=== PATIENT | male | born 1980 | race Caucasian/White ===

== ENCOUNTER 2018-11-25 08:32 | Day surgery (SDC) | payer MEDICARE, MEDICAID ==
[2018-11-21 11:59] LABS: CLARITY,URINE CLEAR (Clear); COLOR,URINE YELLOW (Yellow); GLUCOSE, URINE NEGATIVE (Neg); KETONES,URINE NEGATIVE (Neg); LEUKOCYTE ESTERASE ,URINE NEGATIVE (Neg); NITRITES, URINE NEGATIVE (Neg); OCCULT BLOOD,URINE TRACE-LYSED (Neg); PH,URINE 6.5 (4.8-8.0); PROTEIN,URINE NEGATIVE (Neg); UROBILINOGEN,URINE 0.2 E.U/dL (0.2-1.0)
[2018-11-21 12:00] LABS: UA COLLECTION TYPE VOIDED
[2018-11-21 12:00] LABS: BASOPHILS % (AUTO) 0.5 % (0-1); EOSINOPHILS # (AUTO) 0.1 X10'3 (0-0.9); LYMPHOCYTES # (AUTO) 1.7 X10'3 (1.1-4.8); LYMPHOCYTES % (AUTO) 18.4 % (21-51); MEAN CORPUSCULAR HEMOGLOBIN 31.1 PG (27.0-31.0); MEAN CORPUSCULAR HGB CONC 33.8 g/dL (33.0-36.5); MEAN CORPUSCULAR VOLUME 92.1 FL (78-98); MEAN PLATELET VOLUME 7.1 FL (7.4-10.4); MONOCYTES # (AUTO) 0.6 X10'3 (0-0.9); MONOCYTES % (AUTO) 6.5 % (2-12); NEUTROPHILS # (AUTO) 6.6 X10'3 (1.8-7.7); NEUTROPHILS % (AUTO) 73.6 % (42-75); PRE OP HEMATOCRIT 51.3 % (42.0-52.0); PRE OP HEMOGLOBIN 17.3 g/dL (14.0-17.9); PRE OP PLATELET COUNT 280 X10'3 (140-440); RED BLOOD COUNT 5.56 X10'6 (4.70-6.10); RED CELL DISTRIBUTION WIDTH 13.5 % (11.5-14.5)
[2018-11-21 12:05] LABS: BACTERIA,URINE FEW /HPF (Neg); MUCUS STRANDS FEW /LPF (Neg); SPERM FEW /HPF (NEGATIVE); SQUAMOUS EPITHELIAL CELL,UR FEW /LPF (FEW); WBC,URINE 0-4 /HPF (0-4)
[2018-11-21 12:18] LABS: ALBUMIN/GLOBULIN RATIO 1.1 (1.1-1.5); ALKALINE PHOSPHATASE 84 IU/L (46-116); BLOOD UREA NITROGEN 11 MG/DL (7-18); BUN/CREATININE RATIO 11.2 (5.4-32.0); CALCIUM 8.6 MG/DL (8.5-10.1); CHLORIDE 103 MMOL/L (99-107); CREATININE 0.98 MG/DL (0.60-1.10); PRE OP ALT 34 U/L (30-65); PRE OP ANION GAP 8 (8-16); PRE OP AST 18 U/L (10-37); PRE OP BILIRUB, TOTAL 1.1 MG/DL (0.0-1.0); PRE OP GLUCOSE 94 MG/DL (70-104); PRE OP POTASSIUM 3.9 MMOL/L (3.4-5.1); PRE OP SODIUM 139 MMOL/L (135-145); TOTAL CARBON DIOXIDE 27.8 MMOL/L (24-32); TOTAL PROTEIN 7.6 G/DL (6.4-8.2); eGFR 86 ML/MIN
[~2018-11-25] VITALS: Ht 195.6 cm; Wt 136.0 kg
[~2018-11-25 08:32] MED LIST: ACET1TAB12 PO; GABA800T11 PO; GEMF600T89 PO; OMEP20TA5 PO; [UNRECOGNIZED DRUG - REMARK] PO NR; albuterol 2.5 MG/3 ML nebule NEB ONE; ceFAZolin inj. 3,000 MG in normal saline 100ml IV soln 100 ML IV ONE; famotidine 20mg tablet PO ONE; ringers solution, lacted 1,000 ML IV SCH
[2018-11-25 10:12] VITALS: BP 147/87
[2018-11-25 10:13] VITALS: BP 147/87
[2018-11-25] MEDS ORDERED: acetaminophen w/codeine (30MG) #3 tablet PO ONE (11:10)
[2018-11-25] MEDS ORDERED: LIDOcaine 1% 30ml preserv. free vial ONE (11:26)
[2018-11-25] MEDS ORDERED: BUPIVAcaine/PF 2.5 mg/ml (0.25%) 30ml vial ONE (11:26)
[2018-11-25] MEDS ORDERED: MIDAZolam 5mg/5ml vial ONE (11:40)
[2018-11-25] MEDS ORDERED: fentaNYL/PF 50MCG/1 ML 2ML syringe ONE (11:40)
[2018-11-25] MEDS ORDERED: propofol inj 20 ML IV ONE (12:26)
[2018-11-25 12:30] VITALS: BP 137/87
--- NOTE | 2018-11-25 12:30 | NUR ---
Received from OR via bed, accompanied by Anesthesiologist. Report received. Initial physical assessment done and recorded.
[2018-11-25 12:45] VITALS: BP 138/87
--- NOTE | 2018-11-25 13:00 | NUR ---
Discharged home in good condition. No complaints of pain during post op period, no pain meds given no complaints Discharge criteria met, discharge instructions given, demonstrates verbal understanding.
== END 2018-11-25 13:00 | disposition home or self-care (01) ==
LOC: PAS 08:32
PROVIDERS: ATTEND Surgery
DX: D17.79 Benign lipomatous neoplasm of other sites (principal); K21.9 Gastro-esophageal reflux disease without esophagitis; Z79.899 Other long term (current) drug therapy; G62.9 Polyneuropathy, unspecified; Z98.890 Other specified postprocedural states; D17.1 Benign lipomatous neoplasm of skin and subcutaneous tissue of trunk
CPT/HCPCS: 27045; 36415; 80053; 81001; 82948; 85025; 94640; J0690; J2001; J2250; J2704; J3010; J3490; A6449; A7000; J7120